=== PATIENT | male | born 1990 | race Caucasian/White ===

== ENCOUNTER 2020-08-22 19:01 | Emergency (ER) | payer SELFPAY ==
[2020-08-22 19:58] LABS: #Lymphocytes 2.2 thou/uL (1.20-3.40); #Monocytes 0.6 thou/uL (0.11-0.59); %Eosinophils 0.1 % (0.0-10.0); %Lymphocytes 32.8 % (21.0-51.0); %Monocytes 8.4 % (0.0-10.0); %Neutrophils 58.8 % (42.0-75.0); Hemoglobin 15.1 g/dL (14.0-18.0); Mean Corpuscular HGB CONC 34.3 g/dL (32.0-36.0); Mean Corpuscular Hemoglobin 28.7 pg (27.0-31.0); Mean Corpuscular Volume 83.7 fL (78.0-98.0); Mean Platelet Volume 8.9 fL (7.4-10.4); Platelet Count 159 thou/uL (130-400); RBC Distribution Width 11.5 % (11.5-14.5); Red Blood Cell (RBC) Count 5.27 mill/uL (4.70-6.10); White Blood Cell (WBC) Count 6.7 thou/uL (4.8-10.8)
[2020-08-22 20:19] LABS: ALT (SGPT) 27 U/L (8-55); AST (SGOT) 50 U/L (5-34); Alkaline Phosphatase 50 U/L (40-110); Anion Gap 16 mmol/L (10-20); BUN (Urea Nitrogen) 10 mg/dL (8.9-20.6); Bilirubin, Total 0.7 mg/dL (0.2-1.2); Calc. Creatinine Clearance 0 mL/min (70-130); Calcium 8.2 mg/dL (7.8-10.44); Carbon Dioxide 20 mmol/L (22-29); Chloride 101 mmol/L (98-107); Globulin 3.6 g/dL (2.4-3.5); Glucose 103 mg/dL (70-105); Protein, Total 7.6 g/dL (6.0-8.3); Sodium 133 mmol/L (136-145)
[2020-08-22] MEDS ORDERED: Acetaminophen 500 MG TAB ONE (20:30)
[2020-08-23 11:53] LABS: SARS-CoV-2 PCR by NAA DETECTED (NotDetected)
== END 2020-08-22 21:00 | disposition home or self-care (01) ==
LOC: ERS 19:01
DX: U07.1 COVID-19 (principal)
CPT/HCPCS: 36415; 71045; 80053; 85025; U0003; U0005